=== PATIENT | female | born 1960 | race Caucasian/White ===

== ENCOUNTER → 2016-08-27 | Outpatient (CLI) | payer MEDICAID | LOC: FIMAGING 14:39 | PROVIDERS: ATTEND Physician Assistant | DX: Z12.31 Encounter for screening mammogram for malignant neoplasm of breast (principal); N95.1 Menopausal and female climacteric states | CPT/HCPCS: G0202 ==

== ENCOUNTER → 2016-09-16 | Outpatient (CLI) | payer MEDICAID | LOC: FIMAGING 12:41 | PROVIDERS: ATTEND Physician Assistant | DX: R92.0 Mammographic microcalcification found on diagnostic imaging of breast (principal) | CPT/HCPCS: G0206 ==

== ENCOUNTER → 2017-05-20 | Outpatient (CLI) | payer MEDICAID | LOC: FIMAGING 09:00 | PROVIDERS: ATTEND Physician Assistant | DX: R92.8 Other abnormal and inconclusive findings on diagnostic imaging of breast (principal) ==